=== PATIENT | female | born 1965 | race Caucasian/White ===

== ENCOUNTER → 2016-08-20 | Outpatient (CLI) | payer BC ==
[~2016-08-20] VITALS: Ht 160 cm; Wt 93.0 kg
[~2016-08-20] MED LIST: AMBIEN 5 MG TABL5 M1 PO; AMBIEN PO; PAXIL20 MG PO
--- NOTE | ~2016-08-20 | P ---
[facility] [place] [address] PROCEDURE REPORT Name: PIPE GOINS Room #: REG [facility]#: [id number] Admission: 08/20/16 Attend Phys: Quinten Ingram MD, F Discharge: Date of : 69 Report #: [id number] THIS REPORT FOR: //name// CC: Sharath Ingram DATE OF SERVICE: 08/20/2016 SURGEON: Quinten Ingram MD. PREPROCEDURAL DIAGNOSES: 1. Gastroesophageal reflux disease, status post placement of adjustable gastric band/band revision. 2. Depression. 3. Insomnia. POSTPROCEDURAL DIAGNOSES: 1. Gastroesophageal reflux disease, status post placement of adjustable gastric band/band revision. 2. Abnormal adjustable gastric band motion. 3. Distal esophagitis with esophageal erosion. 4. Depression. 5. Insomnia. PROCEDURE: Thorough esophagogastroduodenoscopy. ANESTHESIA: Propofol 200 mg. ESTIMATED BLOOD LOSS: None. SPECIMENS: None. COMPLICATIONS: None appreciated. INDICATIONS FOR PROCEDURE: This is a 51-year-old female patient, who is obese with a BMI of 35. She underwent placement of an adjustable gastric band in 2007, during which time, she was at her maximum weight of 205 pounds. The band had malfunctioned/slipped and was revised in 2011 with additional repair of a hiatal hernia. Since that time, the patient had lost weight, but has regained 30 pounds since the revision to her current weight. The patient presents now for EGD as a part of the workup for potential band removal. OPERATIVE FINDINGS: The GE junction and Z-line were measured at 37 cm from the teeth. In this area, a single linear erosion was seen. There was no bleeding associated with this. The infolding of the adjustable gastric band was measured at 40.5 cm from the teeth. The body of the stomach and pylorus were [facility] [address] [place] [address] PROCEDURE REPORT Name: PIPE GOINS [facility] [id number] Admission: 08/20/16 Attend Phys: Quinten Ingram MD, F Discharge: Date of : 69 Report #: [id number] normal. The duodenum was also normal down to the third portion. No polyps, diverticula, masses, or ulcers were seen in either the duodenum or stomach. On retroflexion of the scope, there was no evidence for a hiatal hernia. The indentation of the adjustable gastric band was able to be visualized. While doing so, there appeared to be abnormal motion of the band. The patient's sedation had been lightened and she was asked to swallow, during which time, the band appeared to move. This was also visible with respirations. DESCRIPTION OF PROCEDURE IN DETAIL: After the benefits and risks of the procedure were explained to the patient, which included but are not limited to risks of bleeding, perforation, and postprocedural expectations, an informed consent was obtained. The patient was identified in the preoperative holding area. She was then transported to the procedure room where a timeout was performed to identify the correct patient and procedure. A bite block was placed before the patient was sedated. The patient was given IV sedation, which was titrated by Anesthesia throughout the procedure. When the patient was adequately sedated, the gastroscope was inserted into the patient's oropharynx, passed down the esophagus, beyond the adjustable gastric band and into the stomach. The scope was then advanced beyond the pylorus to the third portion of the duodenum. The scope was then slowly withdrawn. The duodenum was circumferentially visualized. The duodenal bulb appeared normal. With the scope withdrawn into the antrum of the stomach, the scope was retroflexed and a retrograde view of the cardia was seen. The scope was then straightened and slowly withdrawn. The scope did pass easily beyond the infolding of the adjustable gastric band. The stomach was decompressed, and the scope was slowly withdrawn through the esophagus. The patient tolerated the procedure well. The patient was awakened and transported to the postanesthesia care unit in stable condition. My recommendation is that the patient be started on a twice daily proton pump inhibitor. The results of the study were discussed with the patient. She would also benefit from removal of the adjustable gastric band as well as from bariatric surgery as she is gaining weight, despite the adjustable gastric band remaining in place. The patient will keep her scheduled followup appointment with me. <ELECTRONICALLY SIGNED> By: Quinten Ingram MD, FACS 08/21/16 [id number] 1655 Quinten Ingram MD, FACS /nt
== END | disposition home or self-care (01) ==
LOC: GI 07:35
DX: K95.09 Other complications of gastric band procedure (principal); K22.10 Ulcer of esophagus without bleeding; K21.9 Gastro-esophageal reflux disease without esophagitis; F32.9 Major depressive disorder, single episode, unspecified; G47.00 Insomnia, unspecified; F41.9 Anxiety disorder, unspecified; Z90.710 Acquired absence of both cervix and uterus; Z98.890 Other specified postprocedural states
CPT/HCPCS: 62110; 62900

== ENCOUNTER → 2016-08-21 | Outpatient (CLI) | payer BC | LOC: RAD 07:20 | DX: K21.9 Gastro-esophageal reflux disease without esophagitis (principal) ==

== ENCOUNTER → 2016-09-02 | Outpatient (CLI) | payer BC | LOC: SLEEPLAB 08-28 16:00 | DX: G47.33 Obstructive sleep apnea (adult) (pediatric) (principal) ==

== ENCOUNTER 2016-12-11 08:03 | Day surgery (SDC) | payer BC ==
[2016-12-11] VITALS (7 sets, daily range): BP systolic 110–152; BP diastolic 68–97
[~2016-12-11] VITALS: Ht 160 cm; Wt 91.2 kg
--- NOTE | ~2016-12-11 | O ---
[facility] [place] [address] OPERATIVE REPORT Name: PIPE GOINS Room #: 411-P REG [facility]..#: [id number] Admission: 12/11/16 Attend Phys: Quinten Ingram MD, F Discharge: Date of : 69 Report #: [id number] THIS REPORT FOR: //name// CC: Quinten Ingram Sarah Burgess DATE OF SERVICE: 12/11/2016 SURGEON: Quinten Ingram MD ROCKBOARD LATHER: Stevie Kamara MD PREOPERATIVE DIAGNOSES: 1. Morbid obesity, status post laparoscopic adjustable gastric band placement. 2. Gastroesophageal reflux disease. 3. Dysphagia. 4. Depression. 5. Back pain. POSTOPERATIVE DIAGNOSES: 1. Morbid obesity, status post laparoscopic adjustable gastric band placement. 2. Gastroesophageal reflux disease. 3. Dysphagia. 4. Depression. 5. Back pain. PROCEDURE: 1. Laparoscopic sleeve gastrectomy. 2. Laparoscopic removal of adjustable gastric band and port. 3. Laparoscopic lysis of adhesions. 4. EGD. 5. Primary repair of incisional ventral hernia. ANESTHESIA: General endotracheal anesthesia and local anesthetic. ESTIMATED BLOOD LOSS: 10 mL. SPECIMEN: Adjustable gastric band and port, lateral stomach. COMPLICATIONS: None appreciated. INDICATIONS FOR PROCEDURE: This is a 51-year-old female patient who has had difficulty with worsening reflux. She underwent placement of an adjustable gastric band initially in 2007 at the [facility] during which time she weighed 205 pounds. The band was felt to have slipped and the patient underwent revision in a nonemergent fashion in 2011 after having lost and regained weight. [facility] [address] [place] [address] OPERATIVE REPORT Name: PIPE GOINS Room #: 411-P REG [facility].R.#: [id number] Admission: 12/11/16 Attend Phys: Quinten Ingram MD, F Discharge: Date of : 69 Report #: [id number] She also reportedly underwent a hiatal hernia repair under the same anesthetic. She had a similar pattern of weight loss with weight regain, having lost 35 pounds and gaining back 30 pounds to her current weight of 216 pounds at her last visit (BMI 38.4). She gained weight despite the diet and exercise changes she instituted based on our previous discussions. Prior to her initial band placement, the patient had tried numerous other weight loss programs and plans with limited weight loss success. Any amount of weight she had lost, she quickly regained plus additional weight after stopping the modality. EGD on 08/20/2016 showed abnormal motion of the adjustable gastric band as well as distal esophagitis. The patient presents today for laparoscopic removal of her adjustable gastric band with possible sleeve gastrectomy. OPERATIVE FINDINGS: The patient had scar tissue from the stomach to the liver, which was carefully taken down. With adequate lysis of adhesions, I was able to expose the adjustable gastric band. The patient had an older band, which required division rather than unbuckling. After dividing the band and removing it, the stomach did not appear to be significantly excoriated and thus it was felt to be safe to proceed with sleeve gastrectomy. The sleeve staple line was located 4 cm lateral/proximal to the pylorus, 3 cm lateral to the incisura of the stomach and 1 cm lateral to the GE junction. There was no evidence for staple line leak and endoluminally, there was no bleeding within the sleeve. The excised stomach held 800 mL of fluid. The patient did have a small incisional ventral hernia located at the tubing exit site to the abdominal wall and this required repair. No other significant intraabdominal pathology was identified. At the conclusion of the operation, the sponge, needle, and instrument counts were correct. DESCRIPTION OF PROCEDURE IN DETAIL: After the risks, benefits, and expectations of the operation were discussed in detail with the patient, informed consent was obtained. The patient was identified in the preoperative holding area. She was given IV antibiotics as documented in the chart in line with the SCIP metrics. The patient was then taken to the operating room and she was placed in the supine position. Sequential compression devices were placed on the patient's bilateral lower extremities and pneumatic compression was initiated. A bite block and orogastric tube were then placed by Anesthesia. The patient's abdomen was then prepped and draped in the standard sterile fashion. A time-out was performed to identify the correct patient and procedure. Local anesthetic was infiltrated into the skin and subcutaneous tissue in the left supraumbilical area where a small transverse incision was made and a 5 mm Visiport was placed intraperitoneally with a 0-degree angled laparoscope. Pneumoperitoneum was then achieved with insufflation of carbon dioxide to 15 mmHg. A 30-degree angled laparoscope was inserted. A right mid 15 mm port was then placed under direct visualization after local anesthetic was infiltrated [address] [address] OPERATIVE REPORT Name: PIPE GOINS Room #: 411-P REG [facility].#: [id number] Admission: 12/11/16 Attend Phys: Quinten Ingram MD, F Discharge: Date of : 69 Report #: [id number] into the skin and subcutaneous tissue and an appropriately sized incision was made. After placing this port, the camera was placed through this to place the additional left lower quadrant 5 mm ports x 2 in the left mid and left lateral abdomen. The patient was then placed in reverse Trendelenburg position. A small transverse incision was made in the subxiphoid area after local anesthetic was infiltrated into the skin and subcutaneous tissue. A 5 mm trocar obturator was used to penetrate the fascia to create a passageway for the Andry liver retractor. The retractor was held in place with the [employer] Producer apparatus. The scar tissue from the stomach to the liver was carefully taken down with sharp dissection and judicious use of the ultrasonic dissector. Dissection was carried down to the adjustable gastric band. The scar tissue around the band was divided. The buckle of the band was then identified. The band was divided sharply and removed from the tract. The tubing was then disconnected. The band was removed through the 15 mm port site. The abdominal cavity was then reentered. The scar tissue overlying the tract, created by plication of the stomach, was carefully taken down with sharp dissection and judicious use of the ultrasonic dissector. After fully taking down the tract and mobilizing the gastric anatomy as much as possible, decision was made to proceed with sleeve gastrectomy. The gastroscope was inserted into the patient's oropharynx, passed down the esophagus into the stomach and down to the pylorus. The scope was then advanced into the duodenum, which appeared normal. The scope was then slightly withdrawn and left within the prepyloric channel. The stomach was decompressed with the orogastric tube. The gastrosplenic ligament and short gastric vessels were then divided with the ultrasonic dissector with good hemostasis up to the left salomón of the diaphragm. Dissection was carried inferiorly to an area that was 4 cm lateral to the pylorus. The orogastric tube was then removed by Anesthesia under my direction. The gastric sleeve was then created. The endoscopic 60 mm ARCHIE stapler buttressed with Melissa-Strips was used for all gastric stapling. The initial two firings were with black loads; the remaining firings from distal to proximal were green loads up to the left salomón of the diaphragm. The stomach was fully transected and removed through the 15 mm port site. An 0 PDS suture was placed with the Austin-Evelyne laparoscopic fascial closure device. The suture was tagged and the port was replaced. The gastric sleeve staple line was then sprayed with Tisseel using the ProBueno aerosolizer. Immediately after doing so, the gastroscope was used to gently insufflate carbon dioxide into the stomach to check for staple line leak. No air bubbles were seen forming within the Tisseel, indicative of a negative leak test. The stomach was decompressed and the scope was slowly withdrawn to the normal appearing esophagus. The abdominal cavity was then reentered. The Andry liver retractor was removed under direct visualization. No other significant intraabdominal pathology was identified. The 15 mm port site fascial suture was tied under direct visualization to ensure no incorporation of [address] [address] OPERATIVE REPORT Name: PIPE GOINS Room #: 411-P REG [facility] M.R.#: [id number] Admission: 12/11/16 Attend Phys: Quinten Ingram MD, F Discharge: Date of : 69 Report #: [id number] intraabdominal content. The abdominal cavity was then desufflated and all remaining ports were removed. The band reservoir was then removed from the subcutaneous tissue. Local anesthetic was infiltrated into the skin and subcutaneous tissue and a transverse incision was made through the old incision used to place the port. Electrocautery was used to dissect through the subcutaneous tissue down to the capsule surrounding the ports. The capsule was then opened. The underlying port was dissected free. The fixation sutures were excised. The port was removed. The incisional ventral hernia that remained was closed with a [id number] 0 PDS suture. The laparoscopic port sites were closed with interrupted subcuticular 4-0 Monocryl sutures and Dermabond. A running 4-0 Monocryl subcuticular suture and Dermabond was used to close the port extraction incision. The patient tolerated the procedure well. She was awakened, extubated, and taken to recovery room in stable condition with no apparent intraoperative complications. <ELECTRONICALLY SIGNED> By: Quinten Ingram MD, FACS 12/13/16 0841 [id number] 1520 Quinten Ingram MD, FACS /nt
--- NOTE | ~2016-12-11 | S ---
[facility] [place] [address] SURGICAL PATH RPT PROCEDURE Name: JANKI GOINS Room #: DEP [facility] M.R.#: [id number] Admission: 12/11/16 Date of : 69 Discharge: 12/13/16 Report #: [id number] Path Case #: [id number] PATHOLOGY REPORT COLLECTION DATE: 12/11/2016 RECEIVED DATE: 12/11/2016 SUBMITTING PHYS: Dr. Quinten Ingram OTHER PHYS: DO Dr. Stevie Viveros SPECIMEN(S) RECEIVED: A.Lap band B.Lap sleeve gastrectomy * * * * * * * * * * * * FINAL DIAGNOSIS: A. "LAP-BAND", removal: - Foreign bodies consistent with LAP-BAND and port. (gross examination only) B. "LAP Sleeve gastrectomy", partial gastrectomy: - Gastric mucosa, submucosa and muscular wall with mucosa showing mild reactive changes and mild chronic inflammation. (CLW:geoffrey; 12/15/2016) PATHOLOGIST: Kerry Maldonado M.D. REPORT ELECTRONICALLY SIGNED BY: Kerry Maldonado M.D. DATE/TIME: 12/15/2016 21:15 * * * * * * * * * * * * GROSS PATHOLOGY: A. The specimen is received fresh, labeled "Janki Goins LAP-BAND". Received is an adjustable laparoscopic band measuring 4.2 x 4.2 x 1.4 cm with attached white tubing measuring 44.4 cm in length by 0.4 cm in diameter, and port measuring 3.1 x 3.1 x 1.6 cm. The back of the port is inscribed with "Port-A-Cath" and "[id number]". A gross photograph is taken. Sections are not submitted. B. The specimen is received in formalin, labeled "Janki Goins, gastric sleeve". Received is a partial gastrectomy specimen with a stapled margin of resection measuring 21.2 x 5.1 x 3.0 cm in greatest dimensions. The serosal surface is pink-landis to pink-russell and glistening in appearance. Opening the specimen reveals light landis mucosa with normal architectural folds. No distinct nodules or lesions are noted grossly. The specimen is submitted representatively in cassettes B1. (CAA; 12/12/2016) [address] [address] SURGICAL PATH RPT PROCEDURE Name: JANKI GOINS Room #: DEP [facility].#: [id number] Admission: 12/11/16 Date of : 69 Discharge: 12/13/16 Report #: [id number] Path Case #: [id number] CLINICAL HISTORY: LAP-BAND in place, morbid obesity INITIAL CPT CODE(S): A; 03936 B; 31940 Professional services performed by [facility] at [address], [place] [address] Technical services performed by [facility] at [address] [place] [address], [address], [place] [address]. [facility] [address] [place] [address] PHONE: [phone] DIRECTOR: Luis Schwarz M.D. * * * END OF REPORT * * *
[~2016-12-11 08:03] MED LIST changes: +AMBIEN 10 MG TA10 MG PO
[2016-12-12] VITALS: BP 132/65
[2016-12-12 06:21] VITALS: BP 137/63
[2016-12-12 06:39] LABS: MCH 33.2 pg (26.0-34.0); MCHC 34.5 g/dL (28.0-37.0); MCV 96.3 fL (80.0-100.0); PLATELET COUNT 267 thou/uL (150-400); RBC 3.63 mil/uL (4.20-5.00); RDW 12.4 % (10.5-14.5); WBC 10.9 thou/uL (4.0-11.0)
[2016-12-12 06:48] LABS: MANUAL DIFF YES
[2016-12-12 06:49] LABS: CALCIUM 7.9 mg/dL (8.5-10.1); CREATININE 0.9 mg/dL (0.6-1.0); POTASSIUM 3.9 mmol/L (3.5-5.1)
[2016-12-12 07:18] VITALS: BP 132/77
[2016-12-12 08:33] LABS: ABSOLUTE NEUTROPHILS 8.3 thou/uL (1.4-8.2); PLATELET ESTIMATE NORMAL; TOTAL CELL COUNT 100
[2016-12-12 18:23] VITALS: BP 138/73
[2016-12-12 20:23] VITALS: BP 123/67
[2016-12-13 05:23] VITALS: BP 113/65
[2016-12-13 08:42] VITALS: BP 109/56
[2016-12-13] MEDS ORDERED: HYDROCODONE-ACE15 ML PO (12:01)
[2016-12-13] MEDS ORDERED: ZOFRAN ODT4 MG PO (12:01)
[2016-12-13 12:21] VITALS: BP 109/56
[2016-12-13] MEDS ORDERED: CLARITIN10 MG PO (12:47)
== END 2016-12-13 13:23 | disposition home or self-care (01) ==
LOC: OR 08:03 → 4N 08:03 → TBA 08:05 → OR 11:00 → 4N 13:53 → OR 15:31
PROVIDERS: Surgery
DX: E66.01 Morbid (severe) obesity due to excess calories (principal); K43.2 Incisional hernia without obstruction or gangrene; K66.0 Peritoneal adhesions (postprocedural) (postinfection); K21.9 Gastro-esophageal reflux disease without esophagitis; R13.10 Dysphagia, unspecified; F32.89 Other specified depressive episodes; M54.9 Dorsalgia, unspecified; F41.9 Anxiety disorder, unspecified; Z98.84 Bariatric surgery status; Z90.710 Acquired absence of both cervix and uterus; Z98.890 Other specified postprocedural states; Z79.899 Other long term (current) drug therapy; Z68.36 Body mass index [BMI] 36.0-36.9, adult
CPT/HCPCS: 50010; 50101; 50222; 50249; 50386; 50555; 50739; 50740; 50962; 51436; 51437; 51489; 52182; 52265; 53307; 53311; 54022; 54118; 55245; 56462; 56525; 56526; 57092; 62110; 62900; 70005